=== PATIENT | female | born 1960 | race Caucasian/White ===

== ENCOUNTER → 2016-05-09 | Outpatient (CLI) | payer OTHER ==
--- NOTE | 2016-05-10 14:25 | MAMMOGRAPHY REPORT ---
BILATERAL DIGITAL SCREENING MAMMOGRAM TOMOSYNTHESIS WITH CAD: 05/09/2016 CLINICAL HISTORY: Routine screening. Patient has no complaints. TECHNIQUE: Breast tomosynthesis in addition to standard 2D mammography was performed. Current study was also evaluated with a Computer Aided Detection (CAD) system. COMPARISON: Comparison is made to exams dated: 05/04/2015 mammogram, 05/01/2014 mammogram, 05/07/2013 m ammogram, 05/07/2013 ultrasound, 04/29/2012 mammogram, and 04/28/2011 mammogram - [facility] enter. BREAST COMPOSITION: The tissue of both breasts is heterogeneously dense, which may obscure small ma sses. FINDINGS: The parenchymal pattern is unchanged. No developing mass, architectural distortion or clu ster of suspicious microcalcifications is seen in either breast. IMPRESSION: ACR BI-RADS CATEGORY 2: BENIGN There is no mammographic evidence of malignancy. A 1 year screening mammogram is recommended. The p atient will receive written notification of the results. Approximately 10% of breast cancers are not detected with mammography. A negative mammographic repor t should not delay biopsy if a clinically suggestive mass is present. Amena Delgado M.D. ay/:05/09/2016 21:22:26 Diagnostic Technician: Tamara OMER(Prasad)(Arcadio)(BD), [facility] letter sent: Normal 1/2 BI-RADS Code: ACR BI-RADS Category 2: Benign
== END | disposition home or self-care (01) ==
LOC: C.MAMM 10:04
PROVIDERS: ATTEND Nurse Practitioner
DX: Z12.31 Encounter for screening mammogram for malignant neoplasm of breast (principal)

== ENCOUNTER → 2017-05-11 | Outpatient (CLI) | payer BC ==
--- NOTE | 2017-05-14 07:44 | MAMMOGRAPHY REPORT ---
BILATERAL DIGITAL SCREENING MAMMOGRAM TOMOSYNTHESIS WITH CAD: 05/11/2017 CLINICAL HISTORY: Routine screening. Patient has no complaints. TECHNIQUE: Breast tomosynthesis in addition to standard 2D mammography was performed. Current study was also evaluated with a Computer Aided Detection (CAD) system. COMPARISON: Comparison is made to exams dated: 05/09/2016 mammogram, 05/04/2015 mammogram, 05/01/2014 ma mmogram, 04/30/2013 mammogram, 04/29/2012 mammogram, and 04/14/2009 mammogram - [facility]. BREAST COMPOSITION: The tissue of both breasts is heterogeneously dense, which may obscure small mas ses. FINDINGS: No suspicious masses, calcifications, or areas of architectural distortion are noted in ei ther breast. There has been no significant interval change compared to prior exams. IMPRESSION: ACR BI-RADS CATEGORY 1: NEGATIVE There is no mammographic evidence of malignancy. A 1 year screening mammogram is recommended. The pa tient will receive written notification of the results. Approximately 10% of breast cancers are not detected with mammography. A negative mammographic report should not delay biopsy if a clinically suggestive mass is present. Ansley Diaz M.D. ah/:05/11/2017 15:17:49 School Psychologist Assistant: Judy OMER(R)(M), [facility] letter sent: Normal 1/2 BI-RADS Code: ACR BI-RADS Category 1: Negative
== END | disposition home or self-care (01) ==
LOC: C.MAMM 09:40
PROVIDERS: ATTEND Nurse Practitioner
DX: Z12.31 Encounter for screening mammogram for malignant neoplasm of breast (principal)

== ENCOUNTER 2017-07-18 05:06 | Inpatient (IN) | payer BC, OTHER ==
[2017-06-26 11:12] VITALS: BMI 34.0
--- NOTE | 2017-06-26 11:55 | PAT Medication Instructions ---
Service Date Jun 26, 2017. Current Home Medication List Cholecalciferol (Vitamin D3), 5,000 TAB PO QAM Cyanocobalamin (Vitamin B12), 1,000 MCG PO QAM Cyclosporine (Ophth) (Restasis), 1 DROP OP BID Ttagsjbneqr-Egemrpswapz-Klgjjx ([employer] Ad), 1 TAB PO QAM Ibuprofen Tab (Advil), 400-800 MG PO PRN Levothyroxine Sodium (Levothyroxine Sodium), 1 TAB PO QAM Multiple Vitamins W/ Minerals (Multi For Her 50+), 1 TAB PO QAM Ocuvite Preservision (Ocuvite Preservision), 1 TAB PO QAM Probiotic Product (Probiotic), 1 TAB PO QAM Valacyclovir (Valtrex), 4 TAB PO for cold sore Vitamin E (Alph-E), 400 UNITS PO QAM Medication Instructions For Your Scheduled Surgery -Contact the surgeon for instructions for: Ibuprofen Tab (Advil), 400-800 MG PO PRN - Hold the following medications 2 weeks prior to surgery: Qjjuvmngzme-Sdtpifrezwb-Qweqzd ([employer] Health Ad), 1 TAB PO QAM Vitamin E (Alph-E), 400 UNITS PO QAM - Hold the following medications the morning of surgery: Cholecalciferol (Vitamin D3), 5,000 TAB PO QAM Cyanocobalamin (Vitamin B12), 1,000 MCG PO QAM Multiple Vitamins W/ Minerals (Multi For Her 50+), 1 TAB PO QAM Ocuvite Preservision (Ocuvite Preservision), 1 TAB PO QAM Probiotic Product (Probiotic), 1 TAB PO QAM - Take the following medications the morning of surgery with a sip of water: Cyclosporine (Ophth) (Restasis), 1 DROP OP BID Levothyroxine Sodium (Levothyroxine Sodium), 1 TAB PO QAM Valacyclovir (Valtrex), 4 TAB PO for cold sore (if needed) - Take the following medications as scheduled the night before surgery: Cyclosporine (Ophth) (Restasis), 1 DROP OP BID Valacyclovir (Valtrex), 4 TAB PO for cold sore (if needed) If you have any questions please call us at [phone] or [phone] or [phone]
--- NOTE | 2017-06-26 12:37 | DIAGNOSTIC IMAGING REPORT ---
CHEST 2 VIEWS ROUTINE HISTORY: 57 years-old Female PAT preoperative exam. No acute chest complaints COMPARISON: None available TECHNIQUE: PA and lateral views of the chest FINDINGS: Cardiac mediastinal and hilar silhouettes are within normal limits. No pneumothorax, pleural effusion, focal airspace consolidation or overt pulmonary edema. The bones of the chest appear grossly intact. IMPRESSION: No acute process. The above report was generated using voice recognition software. It may contain grammatical, syntax or spelling errors. Electronically signed by: Peter Edward M.D. 06/26/2017 12:35 PM Dictated Date/Time: 06/26/2017 12:34 PM
[2017-06-26 13:07] LABS: BASO % 0.6 %; BASO ABS # 0.04 K/uL (0-0.2); EOS % 1.1 %; EOS ABS # 0.07 K/uL (0-0.5); HEMATOCRIT 40.6 % (37-47); HEMOGLOBIN 13.6 g/dL (12.0-16.0); IG# 0.01 K/uL (0.00-0.02); LYMPH % 31.8 %; MEAN CELL VOLUME 96.4 fL (80-100); MEAN CORPUSCULAR HEMOGLOBIN 32.3 pg (25-34); MEAN CORPUSCULAR HGB CONC 33.5 g/dl (32-36); MEAN PLATELET VOLUME 11.8 fL (7.4-10.4); MONO % 6.4 %; NEUT % 59.9 %; NEUT ABS # 3.77 K/uL (1.4-6.5); PLATELET COUNT 213 K/uL (130-400); RED CELL DISTRIBUTION WIDTH CV 13.3 % (11.5-14.5); WHITE BLOOD COUNT 6.29 K/uL (4.8-10.8)
[2017-06-26 13:19] LABS: INR 0.9 (0.9-1.1); PTT PATIENT 24.9 SECONDS (21.0-31.0)
[2017-06-26 13:36] LABS: ALBUMIN 3.8 gm/dl (3.4-5.0); CALCIUM 9.2 mg/dl (8.5-10.1); CREATININE 0.94 mg/dl (0.60-1.20); POTASSIUM 4.2 mmol/L (3.5-5.1)
[2017-06-26 13:47] LABS: HEMOGLOBIN A1C 5.4 % (4.5-5.6)
--- NOTE | 2017-07-17 16:25 | HISTORY & PHYSICAL EXAMINATION ---
DATE OF ADMISSION: 07/18/2017 CHIEF COMPLAINT: Chronic left knee pain. HISTORY OF PRESENT ILLNESS: This is a 57-year-old female patient of Dr. Ayala, complaining of chronic left knee pain, longstanding, now progressively getting worse. The patient has failed conservative treatment including anti-inflammatories, intra-articular injections and the use of a brace. The patient has increased pain with weightbearing activities and her pain does interfere with her activities of daily living. PAST MEDICAL HISTORY: Hypothyroidism, osteoarthritis, and obesity. SOCIAL HISTORY: Nonsmoker. Occasional drinker. PAST SURGICAL HISTORY: Oral surgery and ACL surgery x2. REVIEW OF SYSTEMS: The patient complains of chronic left knee pain, otherwise denies any shortness of breath, chest pain, nausea, vomiting or any other joint complaints. FAMILY HISTORY: Noncontributory. MEDICATIONS: Include Restasis twice daily, levothyroxine 125 mcg daily, vitamin D3 of 5000 international units daily, Ocuvite daily as needed, Move Free daily, vitamin E 400 international units daily, over the counter multi daily, vitamin B12 of 1000 mcg daily and a multivitamin daily. ALLERGIES: No known drug allergies. PHYSICAL EXAMINATION: GENERAL: Well-developed and well-nourished 57-year-old female in no acute distress. She is alert and oriented x3 and pleasant. HEENT: Normocephalic and atraumatic. Extraocular muscles are intact. Pupils are equal and reactive to light. HEART: Regular rate and rhythm. No murmurs appreciated. LUNGS: Clear. ABDOMEN: Soft and nontender. Bowel sounds are present. EXTREMITIES: Left knee reveals limited range of motion of 0-125 with a varus deformity. She had incisions from old surgeries. She has crepitation with passive range of motion and medial joint line tenderness. She has 5/5 strength. NEUROLOGIC: Neurovascularly, she is intact in her left lower extremity. DIAGNOSES: Left knee end-stage osteoarthritis, hypothyroidism, osteoarthritis, and obesity. PLAN: The patient was advised of her diagnoses. Indications, risks, benefits, and postop course have all been reviewed. The patient wished to proceed with a left total knee arthroplasty. Necessary consent forms, preoperative testing and clearances will be obtained. [facility]
[2017-07-18] VITALS (8 sets, daily range): BP systolic 120–137; BP diastolic 71–92; PULSE 73–108; TEMP 36.3–36.8; O2SAT 94–100; Ht 167.6 cm; Wt 97.2 kg
[~2017-07-18] VITALS: Ht 167.6 cm; Wt 97.2 kg
[~2017-07-18 05:06] MED LIST: CHOL1000 PO; CYAN100020 PO; CYCL0.052 OP; GLUC1TAB94 PO; IBUP-103 PO; LEVO125T5 PO; MISCCAP80 PO; MULT-190 PO; MULT-223 PO; VALA500T60 PO; VITA400C28 PO
[2017-07-18] MEDS ORDERED: ACETAMINOPHEN 500 MG TAB PO SCH (06:00)
[2017-07-18] MEDS ORDERED: LACTATED RINGER'S 1000ML 500 ML IV SCH (06:00)
[2017-07-18] MEDS ORDERED: CEFAZOLIN 2000MG IV PUSH 15 ML IV SCH (06:00)
[2017-07-18] MEDS ORDERED: CeleBREX 200 MG CAP PO SCH (06:00)
[2017-07-18] MEDS ORDERED: GABAPENTIN 600 MG PO SCH (06:00)
[2017-07-18] MEDS ORDERED: LACTATED RINGER'S 1000ML 1,000 ML IV SCH (06:00)
[2017-07-18] MEDS ORDERED: DEXAMETHASONE 4 MG TAB PO SCH (06:00)
[2017-07-18] MEDS ORDERED: FAMOTIDINE 20 MG TAB PO SCH (06:00)
[2017-07-18] MEDS ORDERED: ROPIVACAINE 5MG/ML 30 ML 150 MG, BUPIVACAINE 0.5% MPF INJ 30 ML, EpINEphrine HCL INJ 0.... INFIL SCH ×8 (06:00)
[2017-07-18] MEDS ORDERED: METOCLOPRAMIDE HCL 10 MG TAB PO SCH (06:00)
[2017-07-18] MEDS ORDERED: BUPIVACAINE 0.5 % 5 MG/1 ML PF 10ML VIAL ONE (06:19)
[2017-07-18] MEDS ORDERED: ROPIVACAINE 0.5% 5 MG/ML 30 ML VIAL ONE (06:20)
[2017-07-18] MEDS: TRANEXAMIC ACID INJ 1,000 MG x 2 Bags IV SCH ×4 (06:30→06:35)
[2017-07-18] MEDS ORDERED: MIDAZOLAM HCL 1 MG/ML 2ML VIAL ONE (06:36)
[2017-07-18] MEDS ORDERED: FENTANYL CITRATE INJ 50 MCG/1 ML 2 ML VIAL ONE (06:37)
[2017-07-18] MEDS ORDERED: POVIDONE-IODINE OP SOLN 30 ML BTL ONE (06:38)
[2017-07-18] MEDS ORDERED: ORTHO JOINT ANESTHETIC ONE (06:38)
[2017-07-18] MEDS ORDERED: BACITRACIN 50000 UNIT VIAL ONE (06:39)
--- NOTE | 2017-07-18 06:58 | History & Physical Bridge Note ---
H&P Re-Evaluation Bridge Note: I have examined the patient, reviewed the History & Physical and in the interval since the performance of the History & Physical I have noted the following changes of clinical significance: No changes noted
[2017-07-18] MEDS ORDERED: ATROPINE SULFATE 0.1 MG/ML 5ML SYR IV PRN (07:15)
[2017-07-18] MEDS ORDERED: EpHEDrine SULFATE INJ 50 MG/ML AMP IV PRN (07:15)
[2017-07-18] MEDS ORDERED: ONDANSETRON INJ 2 MG/ML 2 ML VIAL IV PRN ×2 (07:15→09:45)
[2017-07-18] MEDS ORDERED: HYDROmorphone INJ 2 MG/ML SYR/VIAL IV PRN (07:15)
[2017-07-18] MEDS ORDERED: PHENYLEPHRINE 100MCG/ML 5ML SYR IV PRN (07:15)
[2017-07-18] MEDS ORDERED: LIDOCAINE HCL 2% 2 ML VIAL (20MG/ML) ONE (07:19)
[2017-07-18] MEDS ORDERED: PROPOFOL IV EMULSION 10 MG/ML 20 ML VIAL IV ONE ×5 (07:19→08:50)
[2017-07-18] MEDS ORDERED: EpHEDrine SULFATE INJ 50 MG/ML AMP ONE (07:29)
[2017-07-18] MEDS ORDERED: ONDANSETRON INJ 2 MG/ML 2 ML VIAL ONE (07:45)
[2017-07-18] MEDS ORDERED: DEXAMETHASONE SOD INJ 4 MG/ML VIAL ONE (07:45)
--- NOTE | 2017-07-18 09:09 | [facility] Post Operative Brief Note ---
Immediate Operative Summary Operative Date Jul 18, 2017. Pre-Operative Diagnosis Left knee end-stage osteoarthritis,h/o multiple knee surgeries failed acl reconstruction Post-Operative Diagnosis Same as preop Procedure(s) Performed Left Total Knee Arthroplasty with Hardware Removal Surgeon Dr. Ayala [place] [employer] Lieutenant Surgeon(s) Teresa Crain PA-C Estimated Blood Loss 5 cc Findings Consistent with Post-Op Diagnosis Specimens A: left knee bone and tissue B: explanted left knee hardware Drains 2 hemovac Anesthesia Type MAC Spinal Regional Complication(s) none Disposition Disposition: Recovery Room / PACU
[2017-07-18] MEDS ORDERED: ALUMINUM/MAGNESIUM/SIMETH (MAALOX MAX) 30 ML UDC PO PRN (09:45)
[2017-07-18] MEDS ORDERED: BISACODYL 10 MG SUPP PR PRN (09:45)
[2017-07-18] MEDS ORDERED: TAMSULOSIN HCL 0.4 MG CAP PO PRN (09:45)
[2017-07-18] MEDS ORDERED: MAGNESIUM HYDROXIDE SUSP 30 ML UDC PO PRN (09:45)
[2017-07-18] MEDS ORDERED: MoRPHine SULFATE 2 MG/ML CARP IV PRN (09:45)
--- NOTE | 2017-07-18 10:10 | Anesthesiology Progress Note ---
Anesthesia Post Op Note Date & Time Jul 18, 2017 at 10:10 Vital Signs Pain Intensity: 0 Vital Signs Past 12 Hours Date Time Temp Pulse Resp B/P (MAP) Pulse Ox O2 Delivery O2 Flow Rate FiO2 07/18/17 09:50 36.4 98 16 125/82 95 Room Air 07/18/17 09:45 36.4 102 16 123/78 96 Room Air 07/18/17 09:35 36.4 104 16 115/68 98 Room Air 07/18/17 05:52 36.7 73 16 132/92 96 Room Air Notes Mental Status: alert / awake / arousable, participated in evaluation Pt Amnestic to Procedure: Yes Nausea / Vomiting: adequately controlled Pain: adequately controlled Airway Patency, RR, SpO2: stable & adequate BP & HR: stable & adequate Hydration State: stable & adequate Anesthetic Complications: no major complications apparent
--- NOTE | 2017-07-18 10:11 | DIAGNOSTIC IMAGING REPORT ---
L KNEE 2 VIEWS ROUTINE CLINICAL HISTORY: Postoperative examination. COMPARISON: None. DISCUSSION: There are post surgical changes of a total left knee arthroplasty and patellar resurfacing. The femoral tibial components appear well seated. Overlying skin aura and surgical drains are evident. There is air within the soft tissues consistent with history of recent surgery. IMPRESSION: Postsurgical changes of a total left knee arthroplasty. Electronically signed by: Samm Coronado M.D. 07/18/2017 10:10 AM Dictated Date/Time: 07/18/2017 10:09 AM
[2017-07-18] MEDS: D5W AND 1/2NSS + 20MEQ KCL 1,000 ML IV SCH ×2 (11:07→21:00)
--- NOTE | 2017-07-18 11:47 | Progress Note ---
Subjective Date of Service: Jul 18, 2017. Subjective Pt evaluation today including: conversation w/ patient, physical exam, chart review, lab review feeling good overall - starting to feel a little bit of pain but already asked nursing for prn meds notes no problems, does wonder about DVT proph - mom from clot - notes that it was a first-time clot and mom was in her 70's and immobile but still raises the concern. she has travelled sometimes for long periods of time without having had clots, and had previous knee surgeries without clots Review of Systems all other ROS otherwise negative except for as above Objective Vital Signs Date Time Temp Pulse Resp B/P (MAP) Pulse Ox O2 Delivery O2 Flow Rate FiO2 07/18/17 11:10 104 12 137/88 (104) 96 Nasal Cannula 2.0 07/18/17 10:55 36.3 98 18 129/82 (98) 94 Room Air 07/18/17 10:20 101 12 123/79 (94) 96 Nasal Cannula 2.0 07/18/17 10:20 Nasal Cannula 2.0 07/18/17 10:20 Nasal Cannula 2.0 07/18/17 10:05 36.4 99 16 123/79 95 Room Air 07/18/17 09:50 36.4 98 16 125/82 95 Room Air 07/18/17 09:45 36.4 102 16 123/78 96 Room Air 07/18/17 09:35 36.4 104 16 115/68 98 Room Air 07/18/17 05:52 36.7 73 16 132/92 96 Room Air Physical Exam General Appearance: no apparent distress Eyes: EOMI ENT: hearing grossly normal Neck: trachea midline Respiratory/Chest: no respiratory distress, no accessory muscle use Extremities: + pertinent finding (LLE dressed and wrapped) Neurologic/Psychiatric: aitchbone breaker II-XII nml as tested, alert, normal mood/affect Skin: normal color, warm/dry Laboratory Results Last 24 Hours Test 07/18/17 05:27 Assessment and Plan L TKA -pain control per ortho orders -appearing to be doing quite well -PT/OT and dispo per ortho hypothyroidism -continue synthroid as per home dosing, already ordered DVT proph -seems most likely that mom's DVT was predominantly provoked from immobility, and her prior hx w travel and surgeries not showing any worrisome signs; however , TKA certainly higher risk for provoking clot than travel/etc -- on asa bid proph as ordered by ortho, will d/w ortho if feasible to escalate. (if not, if risk of bleeding deemed too high by ortho then would keep at asa BID since risk doesn't appear overtly overwhelming, but if not high risk for bleeding/etc then would anticipate escalation) otherwise, once question of DVT proph has been discussed, medically she appears quite stable - we will sign off but be available as needed, thank you.
[2017-07-18] MEDS: OXYCODONE HCL IR 5 MG TAB (IMMEDIATE RELEASE) PO PRN ×3 (12:23→21:30)
[2017-07-18] MEDS: FERROUS GLUCONATE 324 MG TAB PO SCH ×2 (15:14→17:50)
[2017-07-18] MEDS: ACETAMINOPHEN 500 MG TAB PO SCH ×2 (15:15→22:00)
[2017-07-18] MEDS: CEFAZOLIN IV 2,000 MG in SYRINGE 0 ML IV SCH ×2 (15:24→22:55)
[2017-07-18] MEDS: ASPIRIN 81 MG ECTAB PO SCH (21:00)
[2017-07-18] MEDS: DOCUSATE SODIUM 100 MG CAP PO SCH (21:00)
[2017-07-18] MEDS: SENNA 8.6 MG TAB PO SCH (21:00)
[2017-07-18] MEDS: CeleBREX 200 MG CAP PO SCH (21:00)
--- NOTE | 2017-07-18 21:52 | OPERATIVE REPORT ---
DATE OF OPERATION: 07/18/2017 INDICATION FOR PROCEDURE: The patient is a 57-year-old female with chronic left knee pain. She has history of an ACL reconstruction surgery. She has history of revision ACL reconstruction surgery. Over the years she has developed arthritis in her knee. This has progressed over many years. She has had extensive conservative management with multiple injections including Viscosupplementation injections. Radiographs demonstrate that she is bone on bone. She has interference screws from previous surgery. PREOPERATIVE DIAGNOSES: End-stage osteoarthritis, left knee, retained hardware from anterior cruciate ligament reconstruction surgery, multiple surgeries, left knee in the past. POSTOPERATIVE DIAGNOSES: Same with failed anterior cruciate ligament reconstruction and end-stage degenerative arthritis. PROCEDURE: Left total knee arthroplasty, removal of deep hardware (interference screws x2). SURGEON: Trever Ayala MD. TROLLEY COACH DRIVER: TORREY Olivo. ANESTHESIA: Adductor nerve block, spinal anesthetic and Orthomix injection. OPERATIVE PROCEDURE: The patient taken to the operating room, anesthetized under spinal anesthetic and adductor nerve block anesthesia. Pneumatic tourniquet was placed on left upper thigh. Left lower extremity was prepped and draped in sterile fashion. Exam demonstrates she had a varus knee, tight medial compartment, no pseudolaxity, good range of motion, [id number] crepitation. She had previous longitudinal scar from surgery over the patella tendon area off to the medial side slightly and she had a hockey stick type lateral incision. The pneumatic tourniquet was placed about her upper thigh. Left lower extremity was prepped and draped with ChloraPrep in usual sterile fashion. Leg was elevated and exsanguinated with an Esmarch bandage. Pneumatic tourniquet was raised to 325 mmHg. Her anterior longitudinal incision was extended proximally into a larger longitudinal incision and subcutaneous flaps were elevated off the quadriceps mechanism. Incision was made through the medial retinaculum, extended up in the mid third of the quadriceps tendon and extended down to the tibial tubercle area level. Over the medial knee, she had suture material scar tissue from previous surgery. I did subperiosteal dissection around the medial tibia and excised the scarred patellar fat pad. The lateral synovial bands were released. The fat pad over the anterior femur was resected for placement of the femoral component in that area. We identified that the patient had [id number] in the medial compartment and absent ACL with failed ACL reconstruction. PCL was intact and collateral ligaments were intact. There was some medial subluxation of the femur and the tibia and some bone loss in the medial compartment. Retractors were placed. The meniscal remnants were resected. PCL was released and then the femur was exposed with retractors. Intramedullary drill hole was made into the femoral canal. A guidewire was placed and the distal femoral cutting guide was adjusted to resect the standard distal femoral cut at 5 degrees valgus. I used the [employer] 2.0, total knee arthroplasty system for the procedure. The knee was then extended. Then we did a subperiosteal peel lateral release around the patella, measured the patella width. Width was reproduced using a freehand cut technique and a domed type patellar component. Drill holes were made for the patella component. After the cut was made and the excess lateral facet was bevelled off to prevent any impingement. Then retractors were placed around the femur again and the sizing guide was pinned in 3 degrees of external rotation to match the epicondylar axis. Then the femur was sized for a 5 component. Drill holes were made for the femoral cutting block. The 4-1 cutting block was pinned in position and the anterior, posterior and chamfer cuts were made. Then the tibia was subluxed. I used an external tibial cutting guide to make a perpendicular cut to the long axis of the tibia. The proximal tibia cut was made below the most efficient medial side. This just skinned the screw and I was able to identify the screw system backing it out from the cut surface side and I were able to identify the screw on the medial tibia and we placed a screwdriver and backed it out and curetted out the hole and scraped out any old graft material. The lamina motorcycle sales associate was used to assess ligamentous balance. I did a medial and posteromedial release on the medial side to assist in balancing the ligaments and we had to pie crust the MCL to get balanced extension and flexion gaps. The tibia was exposed and the tibial baseplate trial size 4 was externally rotated in line with the tibial tubercle and pinned in position and the punch for the stem was used. Then the 5 femoral trial was inserted and centered and the notch cutting devices were used. When I was reaming for the notch, we did encounter the screws. We had to remove the screw from the femur prior to finishing the reaming and using the box osteotome to make the box cut for the femoral component. After the notch cuts were completed, the collet was placed and then 13 poly insert gave balanced ligaments through full range of motion. The patella had some slight lateral tracking, so I went ahead and did a lateral release leaving the synovium intact and the patella tracked completely centrally at this time. At this time, the trials were all removed and then the Orthomix anesthetic cocktail was injected and then the knee was copiously irrigated with pulsatile lavage antibiotic solution with bacitracin and then the final components were cemented with Simplex G cement. The final components were the [employer] 2.0 size 5 left femoral component, the 4 primary tibial baseplate, the 13 mm high flex poly insert for the tibia and a 35 mm patella. While the cement cured, the knee was soaked with Betadine soak per protocol. Then the knee was copiously irrigated with pulsatile lavage and antibiotic solution with bacitracin after the cement cured and then we went ahead and placed 2 drains, brought them out laterally and then closed the quadriceps tendon and the retinaculum with [id number] #1 Vicryl sutures. I took knee through full range of motion and repair was secure. Subcutaneous tissue closed with interrupted 2-0 Vicryl, skin was closed with aura and sterile dressings were applied and Tony wrap from the foot to thigh. Tourniquet was let down. The patient tolerated the procedure well. TORREY Olivo was my nurse first assist. He functioned as nurse first assist for the entire procedure. He assisted in patient positioning, prepping, draping, leg positioning, soft tissue retraction, instrument management and performed the fascial, subcutaneous and skin closure and will participate in some of the postoperative care of the patient. I attest to the content of the Intraoperative Record and any orders documented therein. Any exception s are noted below.
[2017-07-19 03:03] VITALS: BP 99/66; PULSE 84; TEMP 36.8; O2SAT 97
[2017-07-19] MEDS: TRAMADOL HCL 50 MG TAB PO PRN ×4 (03:16→19:55)
[2017-07-19] MEDS: LEVOTHYROXINE 125 MCG TAB PO SCH (05:50)
[2017-07-19] MEDS: D5W AND 1/2NSS + 20MEQ KCL 1,000 ML IV SCH (05:51)
[2017-07-19] MEDS: ACETAMINOPHEN 500 MG TAB PO SCH ×3 (05:51→21:17)
[2017-07-19 06:49] VITALS: BP 116/72; PULSE 73; O2SAT 97
[2017-07-19 06:52] LABS: HEMATOCRIT 34.6 % (37-47); HEMOGLOBIN 11.5 g/dL (12.0-16.0); MEAN CELL VOLUME 97.7 fL (80-100); MEAN CORPUSCULAR HEMOGLOBIN 32.5 pg (25-34); MEAN CORPUSCULAR HGB CONC 33.2 g/dl (32-36); MEAN PLATELET VOLUME 11.5 fL (7.4-10.4); PLATELET COUNT 211 K/uL (130-400); RED CELL DISTRIBUTION WIDTH CV 13.3 % (11.5-14.5); RED CELL DISTRIBUTION WIDTH SD 47.5 fL (36.4-46.3); WHITE BLOOD COUNT 17.85 K/uL (4.8-10.8)
[2017-07-19 07:20] LABS: CALCIUM 8.6 mg/dl (8.5-10.1); CREATININE 1.12 mg/dl (0.60-1.20); POTASSIUM 4.1 mmol/L (3.5-5.1)
--- NOTE | 2017-07-19 07:59 | Orthopedic Progress Note ---
Orthopedic Progress Note Date of Service Jul 19, 2017. Subjective Post OP Day: 1 Reports: feeling well, Denies: chest pain, SOB, nausea / vomiting, light headedness, calf pain Objective calves soft nontender, N/V intact, capillary refill less than 2 sec., dressing C /D/I, A&O x3, toes mobile, hemovac drainage (125/225CC PER SHIFT) Date Time Temp Pulse Resp B/P (MAP) Pulse Ox O2 Delivery O2 Flow Rate FiO2 07/19/17 06:49 73 18 116/72 (87) 97 Room Air 07/19/17 03:03 36.8 84 17 99/66 (77) 97 Room Air 07/18/17 23:08 36.8 75 16 131/82 (98) 100 Room Air 07/18/17 20:00 Room Air 07/18/17 15:03 36.5 105 18 120/71 (87) 96 Room Air 07/18/17 13:38 36.4 108 19 130/87 (101) 95 Room Air 07/18/17 12:17 36.4 84 19 129/83 (98) 95 Room Air 07/18/17 11:10 104 12 137/88 (104) 96 Nasal Cannula 2.0 07/18/17 10:55 36.3 98 18 129/82 (98) 94 Room Air 07/18/17 10:20 101 12 123/79 (94) 96 Nasal Cannula 2.0 07/18/17 10:20 Nasal Cannula 2.0 07/18/17 10:20 Nasal Cannula 2.0 07/18/17 10:05 36.4 99 16 123/79 95 Room Air 07/18/17 09:50 36.4 98 16 125/82 95 Room Air 07/18/17 09:45 36.4 102 16 123/78 96 Room Air 07/18/17 09:35 36.4 104 16 115/68 98 Room Air Laboratory Results 24 Hours: Test 07/19/17 05:58 Hematocrit 34.6 % Hemoglobin 11.5 g/dL Assessment & Plan Assessment: POD#1 SP LEFT TKA Plan: PT/OT DVT PROPH- ASA 81MG BID PAIN MANAGEMENT- JOSE, TYLENOL, CELEBREX DC PLANNING- PATIENT ALREADY SCHEDULED AT FIT FOR PLAY ON SUNDAY. DC DRESSING/DRAIN TOMORROW AND LIKELY DC HOME.
[2017-07-19] MEDS: CeleBREX 200 MG CAP PO SCH ×2 (08:01→21:17)
[2017-07-19] MEDS: FERROUS GLUCONATE 324 MG TAB PO SCH ×3 (08:01→17:40)
[2017-07-19] MEDS: DOCUSATE SODIUM 100 MG CAP PO SCH ×2 (08:02→21:17)
[2017-07-19] MEDS: CEROVITE ADV FORMULA TAB PO SCH (08:02)
[2017-07-19] MEDS: ASPIRIN 81 MG ECTAB PO SCH (08:02)
[2017-07-19] MEDS ORDERED: MULTIVITAMIN TAB PO SCH (09:00)
[2017-07-19 10:47] VITALS: BP 131/79; PULSE 77; TEMP 36.8; O2SAT 98
[2017-07-19] MEDS: RIVAROXABAN 20 MG TAB PO SCH (11:13)
[2017-07-19 15:12] VITALS: BP 134/75; PULSE 81; TEMP 36.5; O2SAT 97
[2017-07-19] MEDS: SENNA 8.6 MG TAB PO SCH (21:17)
[2017-07-19 22:46] VITALS: BP 120/81; PULSE 83; TEMP 36.9; O2SAT 96
[2017-07-20] MEDS: TRAMADOL HCL 50 MG TAB PO PRN ×2 (01:52→07:45)
[2017-07-20] MEDS: LEVOTHYROXINE 125 MCG TAB PO SCH (05:30)
[2017-07-20] MEDS: ACETAMINOPHEN 500 MG TAB PO SCH (05:30)
[2017-07-20 05:58] VITALS: BP 127/74; PULSE 83; TEMP 36.9; O2SAT 97
[2017-07-20] MEDS: FERROUS GLUCONATE 324 MG TAB PO SCH ×2 (07:45→12:08)
[2017-07-20] MEDS: CEROVITE ADV FORMULA TAB PO SCH (07:46)
[2017-07-20] MEDS: CeleBREX 200 MG CAP PO SCH (07:46)
[2017-07-20] MEDS: DOCUSATE SODIUM 100 MG CAP PO SCH (07:46)
--- NOTE | 2017-07-20 07:51 | Orthopedic Progress Note ---
Orthopedic Progress Note Date of Service Jul 20, 2017. Subjective Post OP Day: 2 Reports: feeling well Objective calves soft nontender, N/V intact, incision C/D/I, toes mobile Date Time Temp Pulse Resp B/P (MAP) Pulse Ox O2 Delivery O2 Flow Rate FiO2 07/20/17 05:58 36.9 83 16 127/74 (91) 97 Room Air 07/19/17 23:00 Room Air 07/19/17 22:46 36.9 83 16 120/81 (94) 96 Room Air 07/19/17 15:15 Room Air 07/19/17 15:12 36.5 81 20 134/75 (94) 97 Room Air 07/19/17 10:47 36.8 77 19 131/79 (96) 98 Room Air Assessment & Plan Assessment: POD#2 SP LEFT TKA Plan: PT/OT DVT PROPH- ASA 81MG BID PAIN MANAGEMENT- JOSE, TYLENOL, CELEBREX DC PLANNING- PATIENT ALREADY SCHEDULED AT FIT FOR PLAY ON SUNDAY. DC HOME.
[2017-07-20] MEDS ORDERED: ACET-24 PO (08:02)
[2017-07-20] MEDS ORDERED: CLB200 PO (08:02)
[2017-07-20] MEDS ORDERED: RXC5 PO (08:02)
[2017-07-20] MEDS ORDERED: ULT50X PO (08:02)
[2017-07-20] MEDS ORDERED: XRL20 PO (08:02)
--- NOTE | 2017-07-20 08:05 | Discharge Instructions ---
Discharge Instructions Date of Service Jul 20, 2017. Admission Reason for Admission: Left Knee Degenerative Joint Disease Discharge Discharge Diagnosis / Problem: Left knee arthritis Discharge Goals Goal(s): Decrease discomfort, Improve function Activity Recommendations Activity Limitations: as noted below Weightbearing Status: Left weightbearing (as tolerated) . Instructions / Follow-Up Instructions / Follow-Up ACTIVITY RECOMMENDATIONS: SELF CARE INSTRUCTIONS AFTER TOTAL KNEE REPLACEMENT A. You may need to continue a physical therapy program after discharge from the hospital. There are several options available to you. Your doctor will assist you in selecting the best one for you. 1. An out-patient facility 2 to 3 times a week for therapy or home therapy. 2. Continue working on all exercises taught to you in the hospital. Your goals should be to increase bending of your knee to 90 degrees and beyond and to fully straighten your knee. B. You may progress at your own pace from walking with a walker or crutches to a cane; then to no assistive devices. C. Make walking a part of your daily routine. Be up as much as comfortable with rest periods throughout the day. Rest with leg elevation is very important. Use the ice wrap frequently for the first 3-4 weeks. D. There are no restrictions on activities. You may ride in a car, shop, participate in multi craft maintenance technician and all social activities. E. Wear the long elastic stockings (GEETHA hose) 20 hours a day for 2 weeks after surgery. They can be removed several times a day for laundering and for a bath. F. You may shower, no tub baths until cleared by your doctor. SPECIAL CARE INSTRUCTIONS: VERY IMPORTANT TO READ AND REVIEW A. There are a few signs you need to watch for after you are home. Call [facility] if you notice any of the followin. Increased severe knee pain. Some pain is expected especially when you exercise. 2. Increased swelling in your leg or knee; pain or swelling of the calf muscle in either lower leg. 3. Any fluid drainage from the incision. 4. Shortness of breath or chest pain. B. Please call [facility] at if you have any concerns or questions about your operation or recovery. The doctor or his nurse will return your call promptly. C. You must take antibiotics before dental work, bladder, bowel or other surgery. Your doctor will provide you with a permanent care to carry describing this precaution. IMPORTANT: * REMEMBER TO TAKE ASPIRIN, 81 MG, TWICE DAILY FOR 4 WEEKS UNLESS OTHERWISE DIRECTED. THIS IS YOUR BLOOD THINNER. * HIGH RISK PATIENTS MAY BE PRESCRIBED A STRONGER BLOOD THINNER. THIS WILL BE PROVIDED AT DISCHARGE. * CALL IF INCREASED PAIN, REDNESS, DRAINAGE OR FEVER GREATER THAT 101. * WEAR GEETHA HOSE 20 HOURS PER DAY FOR 2 WEEKS. * YOU MAY HAVE A LARGE BAND-AID LIKE DRESSING (SILVERON). THIS WILL REMAIN ON YOUR INCISION FOR 7 DAYS, THEN CAN BE REMOVED. IF INCISION IS LEAKING THROUGH DRESSING, CALL THE OFFICE . FOLLOW UP VISIT: If appointment is not already scheduled: Please call [facility] to make a follow-up appointment for 2 weeks after your surgery at . Current Hospital Diet Patient's current hospital diet: Regular Diet Discharge Diet Recommended Diet: Regular Diet Procedures Procedures Performed: Left Total Knee Arthroplasty with Hardware Removal Pending Studies Studies pending at discharge: no Laboratory Results Hemoglobin A1c Test 06/26/17 12:06 Range/Units Estimated Average Glucose 108 mg/dl Hemoglobin A1c 5.4 4.5-5.6 % Medical Emergencies . Who to Call and When: Medical Emergencies: If at any time you feel your situation is an emergency, please call [phone] immediately. . Non-Emergent Contact Non-Emergency issues call your: Surgeon Call Non-Emergent contact if: temperature is above 101.5, your pain is not controlled, wound has increased drainage, wound has increased redness . "Provider Documentation" section prepared by Van Chan PA-C. . [place] Drug Monitoring Program Search Results: patient reviewed within database, no issues identified
[2017-07-20] MEDS: RIVAROXABAN 20 MG TAB PO SCH (09:28)
[2017-07-20 10:31] VITALS: BP 127/74; PULSE 83; TEMP 36.9; O2SAT 97
[2017-07-20] MEDS: OXYCODONE HCL IR 5 MG TAB (IMMEDIATE RELEASE) PO PRN (12:08)
--- NOTE | 2017-07-23 15:42 | DISCHARGE SUMMARY ---
DISCHARGE DIAGNOSIS: Degenerative joint disease left knee. SECONDARY DIAGNOSES: Hypothyroidism, osteoarthritis, obesity. CONSULTS: Dr. Corey Decker. COMPLICATIONS: None. PROCEDURES: Left total knee arthroplasty with hardware removal by Dr. Ayala on 07/18/2017. BRIEF HISTORY: As dictated in the history and physical. HOSPITAL SUMMARY: The patient was admitted on the above-noted date and had the above-noted surgery performed which she tolerated well. On first postoperative day, she was feeling well and had no complaints. Calves were soft and nontender. Neurovascularly intact. Dressings clean, dry and intact. Toes were mobile. Vital signs stable and she was afebrile. Hemoglobin was 11.5 and she was started on physical her protocol and continued on DVT prophylaxis and pain management. By her second postoperative day, she continued to remain stable. She was feeling well. Calves were soft and nontender. Neurovascularly intact. Incision was clean, dry and intact. Toes are mobile. She was remaining medically stable as well as orthopedically stable and it was felt she could be discharged to home. For further review, please see chart. LAB AND X-RAY DATA: As per chart. DISCHARGE INSTRUCTIONS: The patient was discharged home in satisfactory condition on 07/20/2017. DIET: Regular. ACTIVITY: Weightbearing left lower extremity. Follow TK instruction sheets and special care instructions as noted. Follow up with Dr. Ayala in 2 weeks. The patient to call for appointment if one has not been made for you. DISCHARGE MEDICATIONS: Acetaminophen 1000 mg p.o. q. 8 hours, Celebrex 200 mg p.o. b.i.d., oxycodone 5-10 mg p.o. q. 4-6 hours p.r.n., Xarelto 10 mg p.o. daily, tramadol 50-100 mg p.o. q. 4-6 hours p.r.n. Resume home meds as listed and stop taking ibuprofen.
== END 2017-07-20 13:06 | disposition home or self-care (01) | DRG 470 ==
LOC: C.ACU 05:06 → C.3E 06:51 → ENRESERV 10:00
PROVIDERS: ADMIT Orthopaedic Surgery Sports Medicine; ATTEND Orthopaedic Surgery Sports Medicine
PROC: 0QPC04Z Removal of Internal Fixation Device from Left Lower Femur, Open Approach (ICD-10-PCS; principal; 2017-07-18 07:00)
PROC: 0SRD0J9 Replacement of Left Knee Joint with Synthetic Substitute, Cemented, Open Approach (ICD-10-PCS; principal; 2017-07-18 07:00)
PROC: 0QPH04Z Removal of Internal Fixation Device from Left Tibia, Open Approach (ICD-10-PCS; principal; 2017-07-18 07:00)
DX: M17.12 Unilateral primary osteoarthritis, left knee (principal); E03.9 Hypothyroidism, unspecified; E66.9 Obesity, unspecified; Z68.34 Body mass index [BMI] 34.0-34.9, adult; Z98.890 Other specified postprocedural states; Z79.899 Other long term (current) drug therapy; Z83.2 Family history of diseases of the blood and blood-forming organs and certain disorders involving the immune mechanism